=== PATIENT | female | born 1945 | race Caucasian/White ===

== ENCOUNTER 2019-11-09 02:25 | Outpatient (CLI) | payer MEDICARE, SELFPAY ==
--- NOTE | 2019-11-09 | DI.MAMMO_ITS ---
EXAM: MAMMO SCREENING CLINICAL HISTORY: SCREENING, Z12.31 TECHNIQUE: Mammograms were interpreted according to the usual protocol including computer analysis w [employer] CAD system, tomosynthesis and C-view imaging. COMPARISON: FINDINGS: The breasts are of moderate density with fairly symmetrical distribution of fibroglandular tissue. R ight upper outer quadrant biopsy clip noted. No dominant mass or clumped microcalcification is ident ified in either breast. The current examination is compared with previous examinations including July 2017 and there has been no gross interval change in appearance in comparison with the prior studies. IMPRESSION: No specific evidence of malignancy at this time. Routine screening examinations are suggested at yea rly intervals in this age group according to the ACS ACR guidelines. BI-RADS Category 1 - Negative Breast Density - Category B - Scattered areas of fibroglandular density
== END 2019-11-09 02:45 ==
PROVIDERS: PCP Family Medicine; Visit Provider Family Medicine
DX: Z12.31 Encounter for screening mammogram for malignant neoplasm of breast (principal)
CPT/HCPCS: 77063; 77067

== ENCOUNTER 2020-12-26 02:04 | Outpatient (CLI) | payer MEDICARE, SELFPAY ==
--- NOTE | 2020-12-26 10:25 | DI.MAMMO_ITS ---
Exam(s) MAMMO SCREENING EXAM: MAMMO SCREENING CLINICAL HISTORY: screening,Z12.39 TECHNIQUE: Mammograms were interpreted according to the usual protocol including computer analysis w [employer] system, tomosynthesis and C-view imaging. COMPARISON: FINDINGS: The breasts are of moderate density with fairly symmetrical distribution of fibroglandular tissue. N ote is made of a biopsy clip in the upper outer quadrant of the left breast. No mass or clumped micr ocalcification identified in either breast. Examination is compared with prior examinations includin g October 2019 and there has been no gross interval change in appearance comparison with the previous studies. IMPRESSION: No specific evidence of malignancy at this time. Routine screening examinations are suggested at yea rly intervals in this age group according to the ACS ACR guidelines. BI-RADS Category 1 - Negative Breast Density - Category B - Scattered areas of fibroglandular density
== END 2020-12-26 02:24 ==
PROVIDERS: PCP Family Medicine; Visit Provider Obstetrics & Gynecology
DX: Z12.31 Encounter for screening mammogram for malignant neoplasm of breast (principal)
CPT/HCPCS: 77063; 77067

== ENCOUNTER 2022-04-24 00:30 | Outpatient (CLI) | payer MEDICARE, SELFPAY ==
--- OUTSIDE RECORDS SUMMARY | 2022-04-24 00:32 | XMS_ITS | Continuity of Care Document ---
Author Name Unknown Organization [facility] Address [address] [place] [address] Care Team Providers Care [employer] Name Role Phone Isis Alvarado MD Primary Care Physician Encounter [facility] NBR [id number] Date(s): 04/22/22 - 04/22/[address] [id number] Encounter Diagnosis Asymptomatic menopausal state(Final) - Encounter for screening for osteoporosis(Final) - Discharge Disposition: Home or Self Care Attending Physician: Isis Alvarado MD Admitting Physician: Isis Alvarado MD Results Radiology Reports * Exam Date Time Procedure Performing Provider Status 04/22/22 9:22 AM BD Bone Density DEXA Axial Skeleton Gloria Le; Jian (Verified) Notes: (BD Bone Density DEXA Axial Skeleton) Reason For Exam: MENOPAUSAL BD Bone Density DEXA Axial Skeleton EXAM DESCRIPTION: BD Bone Density DEXA Axial Skeleton 04/22/2022 INDICATION: MENOPAUSAL TECHNIQUE: Bone Densitometry (DEXA) was performed. COMPARISON: None FINDINGS: Average bone mineral density of the lumbar spine from L1-4 is 0.905 g per sq cm corresponding to a T-score of -1.3. Findings consistent with osteopenia. Increased fracture risk. Bone mineral density in the left femoral neck is 0.781 g per sq cm corresponding to a T-score of -0.6. No significant bone loss in this region. Bone mineral density involving the distal 1/3 of the right forearm is 0.654 g per sq cm corresponding to a T-score of -0.7. No significant bone loss in this region. FRAX-10 year probability of fracture: Major osteoporotic fracture 8.4%, hip fracture 1% IMPRESSION: Findings consistent with osteopenia. Increased fracture risk. JOB #: [id number] Final Signed by: Oren Greenberg MD Signed (Electronic Signature): 04/22/2022 9:35 am DXA Skeletal system.axial Views for bone density * Oren Greenberg MD: VERIFY, VERIFY Event Display: Report EXAM DESCRIPTION: BD Bone Density DEXA Axial Skeleton 04/22/2022 INDICATION: MENOPAUSAL TECHNIQUE: Bone Densitometry (DEXA) was performed. COMPARISON: None FINDINGS: Average bone mineral density of the lumbar spine from L1-4 is 0.905 g per sq cm corresponding to a T-score of -1.3. Findings consistent with osteopenia. Increased fracture risk. Bone mineral density in the left femoral neck is 0.781 g per sq cm corresponding to a T-score of -0.6. No significant bone loss in this region. Bone mineral density involving the distal 1/3 of the right forearm is 0.654 g per sq cm corresponding to a T-score of -0.7. No significant bone loss in this region. FRAX-10 year probability of fracture: Major osteoporotic fracture 8.4%, hip fracture 1% IMPRESSION: Findings consistent with osteopenia. Increased fracture risk. JOB #: [id number] Final Signed by: Oren Greenberg MD Signed (Electronic Signature): 04/22/2022 9:35 am Patient Care team information Personnel Name: Isis Alvarado MD Address: Address: [address] [place] [address]
--- NOTE | 2022-04-24 07:30 | DI.MAMMO_ITS ---
Exam(s) MAMMO SCREENING EXAM: MAMMO SCREENING CLINICAL HISTORY: screening,z12.39 TECHNIQUE: Bilateral full field digital CC and MLO mammographic images were obtained with 3D tomosyn thesis and utilizing computer aided detection (CAD). COMPARISON: Available for comparison. FINDINGS: Masses/Architectural Distortion: None seen. A biopsy clip is again seen in the upper outer quadrant o f the right breast. Microcalcifications: No suspicious pleomorphic-type are seen. Skin Thickening/Nipple Retraction: None. IMPRESSION: 1. No significant interval change with no specific features of malignancy noted. 2. Unless there is more urgent need, screening mammography is recommended, as per [employer] guidelines. BI-RADS Category 1 - Negative Breast Density - Category B - Scattered areas of fibroglandular density Breast density category C or D implies that the patient has dense breast tissue. Dense breast tissue is very common and is not abnormal but dense breast tissue can make it harder to find cancer on a ma mmogram. Also, dense breast tissue may increase their breast cancer risk. This information about the result of the mammogram report was provided to the patient to raise their awareness. Use this report when you speak with the patient about their risks for breast cancer, which includes their family hist ory. At that time, you may recommend for more screening tests (Ultrasound or MRI) as they might be us eful based on their risk. A negative radiographic report should not delay biopsy if a dominant or clinically suspicious mass is present. Up to ten percent of cancers are not identified on mammography. A negative report may reinforce clinical impression. Adenosis and dense breasts may obscure an underlying neoplasm. False positive reports average 6 to 10%. Patient will receive a letter notifying them of these results.
== END 2022-04-24 00:50 ==
LOC: DI 00:31
PROVIDERS: PCP Family Medicine; Visit Provider Obstetrics & Gynecology
DX: Z12.31 Encounter for screening mammogram for malignant neoplasm of breast (principal)
CPT/HCPCS: 77063; 77067

== ENCOUNTER 2024-06-13 01:21 | Outpatient (CLI) | payer MEDICARE, SELFPAY ==
--- NOTE | 2024-06-13 12:43 | DI.MAMMO_ITS ---
Exam(s) MAMMO SCREENING EXAM: MAMMO SCREENING CLINICAL HISTORY: SCREENING, Z12.31 TECHNIQUE: Bilateral full field digital CC and MLO mammographic images were obtained with 3D tomosyn thesis and utilizing computer aided detection (CAD). COMPARISON: Available for comparison. FINDINGS: Masses/Architectural Distortion: There is again seen a biopsy clip in the upper outer quadrant of the right breast. The nodule in the retroareolar region of the right breast appears stable. No new nod ules are present. No areas of architectural distortion are seen. Microcalcifications: No suspicious pleomorphic-type are seen. Skin Thickening/Nipple Retraction: None. IMPRESSION: 1. No significant interval change with no specific features of malignancy noted. 2. Unless there is more urgent need, screening mammography is recommended, as per [employer] guidelines. BI-RADS Category 2 - Benign Findings Breast Density - Category B - Scattered areas of fibroglandular density Breast density category C or D implies that the patient has dense breast tissue. Dense breast tissue is very common and is not abnormal but dense breast tissue can make it harder to find cancer on a ma mmogram. Also, dense breast tissue may increase their breast cancer risk. This information about the result of the mammogram report was provided to the patient to raise their awareness. Use this report when you speak with the patient about their risks for breast cancer, which includes their family hist ory. At that time, you may recommend for more screening tests (Ultrasound or MRI) as they might be us eful based on their risk. A negative radiographic report should not delay biopsy if a dominant or clinically suspicious mass is present. Up to ten percent of cancers are not identified on mammography. A negative report may reinforce clinical impression. Adenosis and dense breasts may obscure an underlying neoplasm. False positive reports average 6 to 10%. Patient will receive a letter notifying them of these results.
== END 2024-06-13 01:41 ==
LOC: DI 01:22
PROVIDERS: PCP Family Medicine; Visit Provider Family Medicine
DX: Z12.31 Encounter for screening mammogram for malignant neoplasm of breast (principal); R92.323 Mammographic fibroglandular density, bilateral breasts; D24.1 Benign neoplasm of right breast
CPT/HCPCS: 77063; 77067